=== PATIENT | female | born 1995 | race Caucasian/White ===

== ENCOUNTER → 2018-08-25 | Outpatient (REF) | payer OTHER ==
[~2018-08-25] MED LIST: RANI-366 PO
[2018-08-25 13:42] LABS: PLATELET COUNT, AUTOMATED 205 K/uL (150-450)
== END ==
LOC: ZZSTITCHES 13:34
PROVIDERS: ATTEND Physician Assistant
DX: R10.9 Unspecified abdominal pain (principal)
CPT/HCPCS: 82040; 82247; 82310; 82374; 82435; 82565; 82947; 83690; 84075; 84132; 84155; 84295; 84450; 84460; 84520; 85025

== ENCOUNTER 2018-08-26 08:23 | Emergency (ER) | payer OTHER ==
--- NOTE | 2018-08-26 08:39 | ER Report ---
History and Physical Time Seen By MD: 08:40 Hx. of Stated Complaint: PATIENT REPORTS THAT SHE HAS HAD A DULL ACHE IN HER ABDOMEN FOR THE LAST MONTH. THE PAIN HAS BECOME SHARP IN THE LAST 3 DAYS. SHE WENT TO URGENT CARE AND HAD ELEVATED LFT'S AND BILLIRUBEN (ABDIEL GILLIS MD) Time Seen By MD: 07:30 (JOSSUE GILLIS MD) HPI/ROS CHIEF COMPLAINT: abdominal pain HISTORY OF PRESENT ILLNESS: pt presents with abdominal pain x 2 d; constant, moderate, worse with food, epigastric and ruq; was seen 1 d ago for similar with elevated lft's, + nausea/loose stool. No bbv or hematochezia. No recent travel. No other radiation. No cp/sob REVIEW OF SYSTEMS: Constitutional: No fever, no chills. Eyes: No discharge. ENT: No sore throat. Cardiovascular: No chest pain, no palpitations. Respiratory: No cough, no shortness of breath. Gastrointestinal: above Genitourinary: no dysuria Musculoskeletal: No back pain. Skin: No rashes. Neurological: No headache. Remainder of the 14 system rev: Yes (JOSSUE GILLIS MD) Allergies: Coded Allergies: Sulfa (Sulfonamide Antibiotics) (Verified Allergy, Severe, 08/26/18) Home Meds Active Scripts Ranitidine Hcl (ZANTAC) 150 Mg Tablet, 150 MG PO BID for 30 Days, #60 TAB Prov:JOSSUE GILLIS MD 08/26/18 Reviewed Nurses Notes: Yes (JOSSUE GILLIS MD) Hx Substance Use Disorder: No (ABDIEL GILLIS MD) Constitutional Vital Sign - Last 24 Hours 08/26/18 08/26/18 08/26/18 08/26/18 08:31 08:32 08:53 09:23 Temp 98.6 Pulse 83 74 Resp 20 B/P (MAP) 152/88 (109) 152/88 Pulse Ox 91 95 92 O2 Delivery Room Air 08/26/18 08/26/18 09:44 11:46 Pulse 70 Resp 20 B/P (MAP) 127/88 (101) 118/78 (91) Pulse Ox 96 O2 Delivery Room Air (JOSSUE GILLIS MD) Physical Exam General Appearance: The patient is alert, has no immediate need for airway protection and no signs of toxicity. Eyes: Pupils equal and round no pallor or injection. ENT, Mouth: Mucous membranes are moist. Respiratory: There are no retractions, lungs are clear to auscultation. Cardiovascular: Regular rate and rhythm. Gastrointestinal: mild epigastric ttp. Negative Patel's Neurological: alert oriented, moves all ext Skin: Warm and dry, no rashes. Musculoskeletal: Extremities are nontender, nonswollen and have full range of motion. DIFFERENTIAL DIAGNOSIS: After history and physical exam differential diagnosis was considered for abdominal pain including but not limited to appendicitis, cholecystitis, gastritis and urinary tract infection. (JOSSUE GILLIS MD) Medical Decision Making Data Points Result Diagram: 08/26/18 0848 08/26/18 0848 Laboratory Hematology Test 08/26/18 08:48 08/26/18 09:06 08/26/18 10:46 Red Blood Count 5.21 M/uL (4.17-5.56) Mean Corpuscular Volume 89.3 fL (80.0-96.0) Mean Corpuscular Hemoglobin 31.1 pg (26.0-33.0) Mean Corpuscular Hemoglobin Concent 34.8 g/dL (32.0-36.0) Red Cell Distribution Width 12.4 % (11.5-14.5) Mean Platelet Volume 8.5 fL (7.2-11.1) Neutrophils (%) (Auto) 64.3 % (39.4-72.5) Lymphocytes (%) (Auto) 23.5 % (17.6-49.6) Monocytes (%) (Auto) 10.5 % (4.1-12.4) Eosinophils (%) (Auto) 1.0 % (0.4-6.7) Basophils (%) (Auto) 0.7 % (0.3-1.4) Nucleated RBC Relative Count (auto) 0.1 /100WBC Neutrophils # (Auto) 3.7 K/uL (2.0-7.4) Lymphocytes # (Auto) 1.3 K/uL (1.3-3.6) Monocytes # (Auto) 0.6 K/uL (0.3-1.0) Eosinophils # (Auto) 0.1 K/uL (0.0-0.5) Basophils # (Auto) 0.0 K/uL (0.0-0.1) Nucleated RBC Absolute Count (auto) 0.01 K/uL Peripheral Blood Smear No Y/N Sodium Level 137 mmol/L (137-145) Potassium Level 3.8 mmol/L (3.5-5.0) Chloride Level 102 mmol/L (98-107) Carbon Dioxide Level 22 mmol/L (22-31) Blood Urea Nitrogen 10 mg/dl (7-18) Creatinine 0.80 mg/dl (0.52-1.04) Glomerular Filtration Rate Calc > 60.0 Random Glucose 88 mg/dl (75-110) Calcium Level 9.4 mg/dl (8.4-10.2) Total Bilirubin 1.7 mg/dl (0.2-1.3) Aspartate Amino Transf (AST/SGOT) 49 U/L (0-35) Alanine Aminotransferase (ALT/SGPT) 83 U/L (0-56) Alkaline Phosphatase 66 U/L (0-126) Total Protein 8.0 g/dl (6.3-8.2) Albumin 4.4 g/dl (3.5-5.0) Lipase 67 U/L (23-300) Human Chorionic Gonadotropin, Qual Negative (NEGATIVE) Urine Color Maddi Urine Clarity Clear Urine pH 6.0 pH (4.8-9.5) Urine Specific [place] 1.055 Urine Protein Negative mg/dL (NEGATIVE) Urine Glucose (UA) Negative mg/dL (NEGATIVE) Urine Ketones Negative mg/dL (NEGATIVE) Urine Blood Negative (NEGATIVE) Urine Nitrite Negative (NEGATIVE) Urine Bilirubin Negative (NEGATIVE) Urine Urobilinogen Negative mg/dL (0.2-1.9) Urine Leukocyte Esterase Negative (NEGATIVE) Urine RBC <1 /HPF (0-2/HPF) Urine WBC 2 /HPF (0-5/HPF) Urine Squamous Epithelial Cells Many /LPF (</=FEW) Urine Bacteria Few /HPF (NONE-FEW) Urine Mucus None /HPF (NONE-FEW) Chemistry Test 08/26/18 08:48 08/26/18 09:06 08/26/18 10:46 White Blood Count 5.7 k/uL (4.5-11.0) Red Blood Count 5.21 M/uL (4.17-5.56) Hemoglobin 16.2 g/dL (12.0-16.0) Hematocrit 46.5 % (34.0-47.0) Mean Corpuscular Volume 89.3 fL (80.0-96.0) Mean Corpuscular Hemoglobin 31.1 pg (26.0-33.0) Mean Corpuscular Hemoglobin Concent 34.8 g/dL (32.0-36.0) Red Cell Distribution Width 12.4 % (11.5-14.5) Platelet Count 182 K/uL (150-450) Mean Platelet Volume 8.5 fL (7.2-11.1) Neutrophils (%) (Auto) 64.3 % (39.4-72.5) Lymphocytes (%) (Auto) 23.5 % (17.6-49.6) Monocytes (%) (Auto) 10.5 % (4.1-12.4) Eosinophils (%) (Auto) 1.0 % (0.4-6.7) Basophils (%) (Auto) 0.7 % (0.3-1.4) Nucleated RBC Relative Count (auto) 0.1 /100WBC Neutrophils # (Auto) 3.7 K/uL (2.0-7.4) Lymphocytes # (Auto) 1.3 K/uL (1.3-3.6) Monocytes # (Auto) 0.6 K/uL (0.3-1.0) Eosinophils # (Auto) 0.1 K/uL (0.0-0.5) Basophils # (Auto) 0.0 K/uL (0.0-0.1) Nucleated RBC Absolute Count (auto) 0.01 K/uL Peripheral Blood Smear No Y/N Glomerular Filtration Rate Calc > 60.0 Calcium Level 9.4 mg/dl (8.4-10.2) Total Bilirubin 1.7 mg/dl (0.2-1.3) Aspartate Amino Transf (AST/SGOT) 49 U/L (0-35) Alanine Aminotransferase (ALT/SGPT) 83 U/L (0-56) Alkaline Phosphatase 66 U/L (0-126) Total Protein 8.0 g/dl (6.3-8.2) Albumin 4.4 g/dl (3.5-5.0) Lipase 67 U/L (23-300) Human Chorionic Gonadotropin, Qual Negative (NEGATIVE) Urine Color Maddi Urine Clarity Clear Urine pH 6.0 pH (4.8-9.5) Urine Specific [place] 1.055 Urine Protein Negative mg/dL (NEGATIVE) Urine Glucose (UA) Negative mg/dL (NEGATIVE) Urine Ketones Negative mg/dL (NEGATIVE) Urine Blood Negative (NEGATIVE) Urine Nitrite Negative (NEGATIVE) Urine Bilirubin Negative (NEGATIVE) Urine Urobilinogen Negative mg/dL (0.2-1.9) Urine Leukocyte Esterase Negative (NEGATIVE) Urine RBC <1 /HPF (0-2/HPF) Urine WBC 2 /HPF (0-5/HPF) Urine Squamous Epithelial Cells Many /LPF (</=FEW) Urine Bacteria Few /HPF (NONE-FEW) Urine Mucus None /HPF (NONE-FEW) Urinalysis Test 08/26/18 10:46 Urine Color Maddi Urine Clarity Clear Urine pH 6.0 pH (4.8-9.5) Urine Specific [place] 1.055 Urine Protein Negative mg/dL (NEGATIVE) Urine Glucose (UA) Negative mg/dL (NEGATIVE) Urine Ketones Negative mg/dL (NEGATIVE) Urine Blood Negative (NEGATIVE) Urine Nitrite Negative (NEGATIVE) Urine Bilirubin Negative (NEGATIVE) Urine Urobilinogen Negative mg/dL (0.2-1.9) Urine Leukocyte Esterase Negative (NEGATIVE) Urine RBC <1 /HPF (0-2/HPF) Urine WBC 2 /HPF (0-5/HPF) Urine Squamous Epithelial Cells Many /LPF (</=FEW) Urine Bacteria Few /HPF (NONE-FEW) Urine Mucus None /HPF (NONE-FEW) (JOSSUE GILLIS MD) ED Course/Re-evaluation ED Course Pt presents with epigastric/ruq abd pain, similar to prior; ED eval for e/o cholecystitis/pancreatitis, or other emergent etiology. Utliatemly, pain improves and mild lft/bilirubin are similar to, not increased from 1 d ago. Findings most c/w gastritis/duodenitis, pud without ct evidence. Will initiate symptomatic tx and have f/u with Dr. Graves tomorrow for eval for need of endoscopy. Pt very comfortable on d/c and understands SRP's. Decision to Disposition Date: Aug 26, 2018 Decision to Disposition Time: 11:00 (JOSSUE GILLIS MD) Depart Departure Latest Vital Signs Vital Signs Date Time Temp Pulse Resp B/P (MAP) Pulse Ox O2 Delivery O2 Flow Rate FiO2 08/26/18 11:46 70 20 118/78 (91) 96 Room Air 08/26/18 08:32 98.6 (JOSSUE GILLIS MD) Impression: Primary Impression: Abdominal pain Additional Impression: Elevated LFTs Condition: Improved Disposition: HOME OR SELF-CARE Referrals: SUBHA CHRISTIE MD 2 Days New Scripts Ranitidine Hcl (ZANTAC) 150 Mg Tablet 150 MG PO BID for 30 Days, #60 TAB Prov: JOSSUE GILLIS MD 08/26/18 Patient Instructions: Abdominal Pain (ED) Additional Instructions: As we discussed, start zantac twice daily; you may also use maalox (over the counter) if you have pain after meals. Please return for worsening symptoms, not tolerating fluids, change in skin color, or any concerns. Problem Qualifiers Primary Impression: Abdominal pain Abdominal location: epigastric Qualified Codes: R10.13 - Epigastric pain ABDIEL GILLIS MD Aug 26, 2018 08:39 JOSSUE GILLIS MD Aug 26, 2018 11:38
[2018-08-26 09:04] LABS: PLATELET COUNT, AUTOMATED 182 K/uL (150-450)
[2018-08-26] MEDS ORDERED: IOPAMIDOL 76% 75 ML INFUS BTL 75 ML ONE (09:48)
--- NOTE | 2018-08-26 10:04 | RADIOLOGY IMAGING REPORT ---
[place] [facility] [place]: Anita Nicole : 1995 MR: [id number] V: [id number] EXAM DATE: ORDERING PHYSICIAN: ABDIEL GILLIS TECHNOLOGIST: Location: [facility] [place] Patient: Anita Nicole : 1995 Visit/Account:[id number] Date of Sevice: 08/26/2018 EXAMINATION: GALLBLADDER HISTORY: Right upper quadrant abdominal pain with transaminitis. COMPARISON: None FINDINGS: Pancreas: Normal Liver: Liver is normal size with smooth margins and homogeneous intermediate echogenicity. Normal di rectional blood flow in the main portal vein by duplex Doppler ultrasound. Bile ducts: Intrahepatic and extrahepatic bile ducts are normal caliber. Common bile duct measures 4 mm diameter in the wilmar hepatis. Gallbladder: Gallbladder is normal size and wall thickness. Gallbladder contains no stones or sludge . Right Kidney: Normal size with preserved parenchymal thickness and appropriate echogenicity. Right k idney measures 9 cm length. There is no hydronephrosis. Abdominal aorta and IVC: Abdominal aorta and IVC are normal caliber. Both are patent. Ascites: None IMPRESSION: Normal Report Dictated By: Angélica Mays MD at 08/26/2018 9:58 AM Report E-Signed By: Angélica Mays MD at 08/26/2018 10:00 AM WSN:[id number]
--- NOTE | 2018-08-26 10:32 | RADIOLOGY IMAGING REPORT ---
FACILITY: [facility] PATIENT NAME: Anita Nicole : 1995 MR: [id number] V: [id number] EXAM DATE: ORDERING PHYSICIAN: ABDIEL GILLIS TECHNOLOGIST: Location: [facility] Patient: Anita Nicole : 1995 Visit/Account:[id number] Date of Sevice: 08/26/2018 ABDOMEN/PELVIS WITH CONTRAST HISTORY: midepigastric and RUQ pain TECHNIQUE: CT abdomen and pelvis 90 cc of Isovue 370 IV. One of the following dose optimization [employer] was utilized in the performance of this exam: automated exposure control; adjustment of the m A and/or kV according to the patient's size; or use of an iterative reconstruction technique. Specif ic details can be referenced in the facility's radiology CT exam operational policy. COMPARISON: None. FINDINGS: Liver/gallbladder: The liver demonstrates normal enhancement. Gallbladder is unremarkable. Spleen: Normal. Adrenals: Normal. Pancreas: Normal enhancement without evidence of mass. Kidneys/: The right and left kidney demonstrate normal enhancement without evidence of hydronephro sis or mass. Both ureters are normal. Pelvis: Urinary bladder and uterus and ovaries are normal. GI: There is no focal abnormality in the small bowel or colon. Vessels/spaces/nodes: Negative. Bones/soft tissues: There are no lytic or blastic bone lesions. Soft tissues are normal. Visualized lung bases: Clear. IMPRESSION: Normal CT abdomen and pelvis. Report Dictated By: Moncho Hernandez at 08/26/2018 10:24 AM Report E-Signed By: Moncho Hernandez at 08/26/2018 10:27 AM WSN:[id number]
[2018-08-26] MEDS ORDERED: RANI-366 PO (11:36)
[2018-08-26 11:46] VITALS: BP 118/78
[2018-08-28] MEDS ORDERED: LEVO1TAB31 PO (08:57)
[2018-08-28] MEDS ORDERED: SIME62.54 PO (08:57)
[2018-08-28] MEDS ORDERED: CALC168T17 PO (08:57)
[2018-08-28] MEDS ORDERED: BISM262T85 PO (08:57)
== END 2018-08-26 11:50 | disposition home or self-care (01) ==
LOC: ER 08:46
DX: R10.13 Epigastric pain (principal); R10.11 Right upper quadrant pain; R79.89 Other specified abnormal findings of blood chemistry
CPT/HCPCS: 74177; 76705; 81001; 83690; 84703; 85025; 99284; Q9967; 82040; 82247; 82310; 82374; 82435; 82565; 82947; 84075; 84132; 84155; 84295; 84450; 84460; 84520